=== PATIENT | female | born 1960 | race Caucasian/White ===

== ENCOUNTER 2016-08-27 17:00 | Inpatient (IN) | payer BC, OTHER ==
[~2016-08-27] VITALS: Ht 165.1 cm; Wt 78.9 kg
--- NOTE | ~2016-08-27 | HC ---
[facility] [place] [address] CONSULTATION Name: AURORA BAKER Room #: 424-P [facility] IN M.R.#: [id number] Admission: 08/27/16 Attend Phys: Kayleigh Rodrigez MD Discharge: 08/28/16 Date of : 62 Report #: [id number] THIS REPORT FOR: //name// CC: Lane Rodrigez DATE OF SERVICE: 08/28/2016 CARDIOLOGY CONSULTATION INDICATION: Shoulder pain/epigastric pain. HISTORY OF PRESENT ILLNESS: This is a pleasant 55-year-old female presenting with left shoulder discomfort. She had a recent 4-vessel CABG on 07/22/2016. She had been doing well until she developed a left shoulder discomfort for the past week. She describes a discomfort in the left shoulder area, radiating down her arm. It seems to be worse with standing or movement or stretching of the arms. It is better when she rests. This is not her anginal equivalent. There is no history of shortness of breath, fever or congestion. In the ER, she was treated with pain medications, with relief for her symptoms. However, she developed sudden onset of epigastric discomfort and was admitted to the hospital. Serial troponin levels are negative and her epigastric pain has resolved. Again, this is not her anginal equivalent. PAST MEDICAL HISTORY: Four-vessel CABG on 07/22/2016, hypertension, hypercholesterolemia and former tobacco smoker. ALLERGIES: None. MEDICATIONS: At home include metoprolol 12.5 mg twice a day, aspirin once a day, Protonix 40 mg daily and simvastatin 20 mg a night. SOCIAL HISTORY: Former tobacco smoker. FAMILY HISTORY: Negative for premature CAD. REVIEW OF SYSTEMS: A full 10-point review of systems was performed. Only the pertinent positives and negatives are described in the HPI. PHYSICAL EXAMINATION: VITAL SIGNS: Blood pressure is 120/70, heart rate is 65 beats per minute. GENERAL APPEARANCE: She is a well-developed, well-nourished female, in no acute respiratory distress. HEAD AND EYES: Normocephalic. Sclerae are anicteric. ENT: Oral mucosa moist. NECK: Supple. [facility] [address] [place] [address] CONSULTATION Name: MATTHEW BAKERDI Room #: 424-P [facility] IN .R.#: [id number] Admission: 08/27/16 Attend Phys: Kayleigh Rodrigez MD Discharge: 08/28/16 Date of : 62 Report #: [id number] LUNGS: Clear to auscultation. CARDIAC: Regular rate and rhythm, S1, S2 positive. ABDOMEN: Soft, nontender. EXTREMITIES: No major joint deformities. NEUROLOGIC: Alert and oriented times 3. DIAGNOSTIC DATA: ECG reveals sinus rhythm, LVH with repolarization abnormalities. LABORATORY VALUES: Serial troponin levels are negative times 3. ASSESSMENT: 1. Left shoulder discomfort, most likely related to musculoskeletal or neurologic etiology. Continue with pain control. 2. Epigastric discomfort, this is not her anginal equivalent. So, serial troponin levels are negative. More likely related to GI etiology. 3. Coronary artery disease/coronary artery bypass graft. Clinically stable, continue with aspirin. 4. Hypertension, continue with the beta viviana. 5. Hypercholesterolemia, continue with statin therapy. Thank you for allowing me to participate in the care of your patient. <ELECTRONICALLY SIGNED> By: Michael Gonzalez MD 08/29/16 0738 [id number] Michael Gonzalez MD /nt
--- NOTE | ~2016-08-27 | EKG ---
[address] [address] ELECTROCARDIOGRAM REPORT Name: AURORA BAKER Room #: 424-P ADM IN M.R.#: [id number] Admission: 08/27/16 Attend Phys: Kayleigh Rodrigez MD Discharge: Date of : 62 Report #: [id number] THIS REPORT FOR: //name// [facility] ED Test Date: 2016-08-27 Test Time: 17:02:55 Pat Name: AURORA BAKER Department: Room: 424 Gender: F Calender Operator: Phillip VELASCO : 1960 Requested By: Chantell Gayle Order Number: [id number] MD: Michael Gonzalez Measurements Intervals [place] Rate: 80 P: 71 CT: 155 QRS: 58 QRSD: 90 T: 236 QT: 358 QTc: 413 Interpretive Statements Sinus rhythm Probable left atrial enlargement Probable LVH with secondary repol abnrm Baseline wander in lead(s) V2,V3,V5,V6 Electronically Signed On 08-28-2016 10:55:32 PRECISION INSTRUMENT AND TOOL MAKER by Michael Gonzalez [email or web address] <ELECTRONICALLY SIGNED> By: Michael Gonzalez MD 08/28/16 1055 1702 1702 MD JDUITH Hernandez
--- NOTE | ~2016-08-27 | EKG ---
[address] [employer] [address] ELECTROCARDIOGRAM REPORT Name: AURORA BAKER Room #: 424-P ADM IN M.R.#: [id number] Admission: 08/27/16 Attend Phys: Kayleigh Rodrigez MD Discharge: Date of : 62 Report #: [id number] THIS REPORT FOR: //name// [facility] ED Test Date: 2016-08-27 Test Time: 19:21:02 Pat Name: AURORA BAKER Department: Room: 424 Gender: F Case Operator: GERMAN : 1960 Requested By: Chantell Gayle Order Number: [id number] MD: Michael Gonzalez Measurements Intervals [place] Rate: 65 P: 72 [place]: 168 QRS: 56 QRSD: 92 T: 95 QT: 494 QTc: 514 Interpretive Statements Sinus rhythm Probable LVH with secondary repol abnrm Prolonged QT interval Compared to ECG 07/26/2016 14:54:28 Electronically Signed On 08-28-2016 10:58:45 PRINT PRODUCTION COORDINATOR by Michael Gonzalez [email or web address] <ELECTRONICALLY SIGNED> By: Michael Gonzalez MD 08/28/16 1058 1921 1921 Michael Gonzalez MD /[place]
[~2016-08-27 17:00] MED LIST: ASPIR 8181 MG PO; CELEXA20 MG PO; ESZOPICLONE3 MG PO; IMDUR 30 MG TAB30 M1 PO; LOPRESSOR25 PO; NITROGLYCERIN0.4 MG SUBLING; PACERONE 200 M200 M1 PO; PROTONIX40 M1 PO; SIMVASTATIN20 MG PO; VYVANSE70 MG PO
[2016-08-27 17:01] VITALS: BP 147/90
[2016-08-27] MEDS ORDERED: XANAX 0.5 MG0.5 MG PO (17:12)
[2016-08-27] MEDS ORDERED: AMPHETAMINE SAL30 MG PO (17:13)
[2016-08-27] MEDS ORDERED: ESCITALOPRAM OX20 MG PO (17:13)
[2016-08-27 17:22] LABS: HEMATOCRIT 42.1 % (37.0-47.0); HEMOGLOBIN 13.9 gm/dL (12.0-15.0); MCH 26.8 pg (26.0-34.0); MCV 81.2 fL (80.0-100.0); PLATELET COUNT 328 thou/uL (150-400); RBC 5.18 mil/uL (4.20-5.00); RDW 14.7 % (10.5-14.5); WBC 7.6 thou/uL (4.0-11.0)
[2016-08-27 17:25] LABS: MANUAL DIFF YES
[2016-08-27 17:26] LABS: ANION GAP 9 mmol/L (7-16); BUN 15 mg/dL (7-18); CALCIUM 8.8 mg/dL (8.5-10.1); CHLORIDE 104 mmol/L (98-107); CO2 26 mmol/L (21-32); GLUCOSE 111 mg/dL (70-99); POTASSIUM 4.1 mmol/L (3.5-5.1); SODIUM 139 mmol/L (136-145)
[2016-08-27 17:35] LABS: ALBUMIN 3.9 g/dL (3.4-5.0); ALKALINE PHOSPHATASE 104 U/L (46-116); SGOT 13 U/L (15-37); SGPT 21 U/L (30-65); TOTAL BILIRUBIN 0.3 mg/dL (<0.1-1.0); TOTAL PROTEIN 7.8 g/dL (6.4-8.2); TROPONIN-I < 0.04 ng/mL (<0.04-0.07)
[2016-08-27 17:52] LABS: ABSOLUTE NEUTROPHILS 4.7 thou/uL (1.4-8.2); TOTAL CELL COUNT 100
[2016-08-27 18:33] LABS: URINE BILIRUBIN NEGATIVE (Negative); URINE BLOOD NEGATIVE (Negative); URINE COLOR YELLOW; URINE GLUCOSE-RANDOM* NEGATIVE (Negative); URINE KETONES NEGATIVE (Negative); URINE LEUKOCYTES-REFLEX NEGATIVE (Negative); URINE PROTEIN (DIPSTICK) NEGATIVE (Negative); URINE SPECIFIC GRAVITY >= 1.030 (1.003-1.035); URINE UROBILINOGEN 0.2 E.U./dl (0.2-1.0)
[2016-08-27] MEDS ORDERED: NORFLEX100 MG PO (18:35)
[2016-08-27] MEDS ORDERED: HYDROCODONE-AP1 EAC6 PO (18:35)
[2016-08-27 20:00] VITALS: BP 129/74
[2016-08-27 21:06] VITALS: BP 123/67
[2016-08-28 01:13] VITALS: BP 136/75
[2016-08-28 04:00] VITALS: BP 114/72
[2016-08-28 08:10] VITALS: BP 101/65
[2016-08-28 15:06] VITALS: BP 101/65
[2016-08-28] MEDS ORDERED: LORTAB 5-325 M1 EACH PO (16:36)
[2016-08-28] MEDS ORDERED: FLEXERIL PO (16:36)
== END 2016-08-28 17:05 | disposition home or self-care (01) | DRG 392 ==
LOC: ER 17:00 → EROBS 20:20 → 4E 20:57
PROVIDERS: Physician Assistant
DX: R10.13 Epigastric pain (principal); I25.10 Atherosclerotic heart disease of native coronary artery without angina pectoris; M25.512 Pain in left shoulder; E78.00 Pure hypercholesterolemia, unspecified; I10 Essential (primary) hypertension; Z79.899 Other long term (current) drug therapy; Z79.82 Long term (current) use of aspirin; Z95.1 Presence of aortocoronary bypass graft; Z90.49 Acquired absence of other specified parts of digestive tract; Z98.890 Other specified postprocedural states; Z87.891 Personal history of nicotine dependence
CPT/HCPCS: 10183